=== PATIENT | male | born 1965 | race Caucasian/White ===

== ENCOUNTER 2018-10-29 11:24 | Emergency (ER) | payer SELFPAY ==
--- NOTE | 2018-10-29 12:23 | RAD ---
Radiograph left elbow 3 views: Attention juan in billing: This is a 3 study rather than 4 review. DATE: 10/29/2018 HISTORY: 53-year-old male with traumatic elbow pain FINDINGS: This is submitted is a 4 view study. However, 2 of the images are both the same AP projections. The o blique view is suboptimally oblique, and is also almost an AP projection. This is therefore, essentially a 2 view study. No evidence of joint effusion. No DJD. No fracture or dislocation. IMPRESSION: Negative
== END 2018-10-29 12:38 | disposition home or self-care (01) ==
LOC: NAV ERS 11:24
DX: S56.912A Strain of unspecified muscles, fascia and tendons at forearm level, left arm, initial encounter (principal); F17.210 Nicotine dependence, cigarettes, uncomplicated; X50.9XXA Other and unspecified overexertion or strenuous movements or postures, initial encounter

== ENCOUNTER 2019-07-19 21:45 | Emergency (ER) | payer MEDICARE, OTHER ==
[~2019-07-19 21:45] MED LIST: Iopamidol 370 76% 100 ML VIAL ONE
[2019-07-19] MEDS ORDERED: Ibuprofen 800 MG TAB ONE (21:56)
[2019-07-19] MEDS ORDERED: Acetaminophen 500 MG TAB ONE (21:56)
[2019-07-19] MEDS ORDERED: Sodium Chloride 0.9% 2,000 ML ONE (22:15)
[2019-07-19] MEDS ORDERED: Sodium Chloride 0.9% 500 ML ONE (22:15)
--- NOTE | 2019-07-19 22:35 | RAD ---
XR Chest 1 View Portable History: Cough and chills Comparison: None. Findings: There is an abnormal mass in the right upper lobe adjacent to the hilum. Remainder of the l ungs appear relatively clear. No pneumothorax. No effusion. No acute osseous abnormality. Impression: Mass right upper lobe adjacent to the hilum measuring up to 2.7 cm size concerning for ma lignancy. Nonemergent follow-up chest CT recommended with contrast. Code: Lung nodule
[2019-07-19] MEDS ORDERED: Azithromycin 500 MG VIAL ONE (22:42)
[2019-07-19] MEDS ORDERED: Sodium Chloride 0.9% 250 ML 250 ML ONE ×2 (22:42→22:43)
[2019-07-19] MEDS ORDERED: cefTRIAXone\\ROCEPHIN 2 GM VIAL ONE (22:46)
[2019-07-19] MEDS ORDERED: Sodium Chloride 0.9% 100 ML ONE (22:46)
[2019-07-19 22:56] LABS: Band 6 % (5-11); Hemoglobin 14.7 g/dL (14.0-18.0); Lymphocytes 2 % (21-51); MDiff Complete? YES; Mean Corpuscular Hemoglobin 32.7 pg (27.0-31.0); Mean Corpuscular Volume 99.1 fL (78.0-98.0); Mean Platelet Volume 5.8 fL (7.4-10.4); Monocytes 4 % (0-10); Neutrophil 88 % (42-75); Platelet Count 448 thou/uL (130-400); Platelet Morphology Comment Appears Adequate; RBC Distribution Width 12.8 % (11.5-14.5); RBC Morphology Normal; White Blood Cell (WBC) Count 18.2 thou/uL (4.8-10.8)
[2019-07-19 22:59] LABS: ALT (SGPT) 23 U/L (8-55); AST (SGOT) 22 U/L (5-34); Albumin 3.8 g/dL (3.5-5.0); Alkaline Phosphatase 72 U/L (40-110); Anion Gap 14 mmol/L (10-20); BUN (Urea Nitrogen) 14 mg/dL (8.4-25.7); Bilirubin, Total 0.4 mg/dL (0.2-1.2); Calc. Creatinine Clearance 0 mL/min (70-130); Calcium 8.7 mg/dL (7.8-10.44); Carbon Dioxide 23 mmol/L (22-29); Chloride 100 mmol/L (98-107); Estimated GFR-MDRD 72; Globulin 2.4 g/dL (2.4-3.5); Glucose 117 mg/dL (70-105); Protein, Total 6.2 g/dL (6.0-8.3); Sodium 133 mmol/L (136-145)
--- NOTE | 2019-07-19 23:57 | CT ---
CT Chest W Con History: Pneumonia evaluation Comparison: Chest radiograph same day Findings: There is a peripheral area of consolidation in the posterior aspect right upper lobe with p eripheral groundglass. No other consolidation is seen. No pneumothorax. No effusion. Abnormal hypoattenuation hepatic segment 8 peripherally. Remainder of t he upper abdomen is unremarkable. No mediastinal adenopathy. No acute osseous abnormality. Impression: 1. Posterior segment right upper lobe consolidation with peripheral groundglass. Although this may re flect a focal area of pneumonia, adenocarcinoma can have a similar appearance. Chest CT follow-up in 3 months is recommended. 2. Peripheral wedge-shaped hypoattenuation within hepatic segment 8. Nonemergent follow-up liver prot ocol MRI recommended.
== END 2019-07-20 00:12 | disposition short-term general hospital (02) ==
LOC: NAV ERS 21:45
DX: A41.9 Sepsis, unspecified organism (principal); R65.20 Severe sepsis without septic shock; R91.8 Other nonspecific abnormal finding of lung field; F17.210 Nicotine dependence, cigarettes, uncomplicated; Z20.828 Contact with and (suspected) exposure to other viral communicable diseases
CPT/HCPCS: 36415; 71045; 71260; 80053; 83605; 85025; 87040; 87081; 87430; 87633; 87804; 96365; J0456; J0696; J3490; J7050; Q9967; U0001